=== PATIENT | male | born 1955 | race Caucasian/White ===

== ENCOUNTER 2020-10-15 14:44 | Outpatient (CLI) | payer OTHER, SELFPAY | END 2020-10-15 14:45 | disposition home or self-care (01) | LOC: ANHCOVIDVC 14:44 | PROVIDERS: PCP Family Medicine | DX: Z23 Encounter for immunization (principal) | CPT/HCPCS: 0001A; 91300 ==

== ENCOUNTER 2020-11-05 14:46 | Outpatient (CLI) | payer OTHER, SELFPAY | END 2020-11-05 14:47 | disposition home or self-care (01) | LOC: ANHCOVIDVC 14:46 | PROVIDERS: PCP Family Medicine | DX: Z23 Encounter for immunization (principal) | CPT/HCPCS: 0002A; 91300 ==

== ENCOUNTER 2021-10-13 07:33 | Outpatient (CLI) | payer OTHER, SELFPAY ==
--- NOTE | 2021-10-19 15:05 | WPDHOMESLEEP ---
Sleep Study - Home Unattended Date of Study: 10/13/21 Ordering Provider: Qasim Méndez MD Interpreting Provider: Hannah Johnson, DO Home Sleep Study Type: Watch PAT Height: 1.78 m Weight: 97.522 kg Body Mass Index: 30.8 Neck Circumference (inches): 17.5 [place]: 2 Reason for Sleep Study Unrefreshing sleep, daytime hypersomnia Sleep History The patient is a 66-year-old male with hypertension, hyperlipidemia, GERD, chronic kidney disease stage III and vitamin-D deficiency that had a home sleep test ordered by his primary care for evaluation of sleep apnea. The patient is a building maintenance simple HEENT. The patient denies awakening from sleep short of breath. He rarely awakens at night with heartburn, belching or cough. He frequently snores and is constantly loudly enough that others complain. He occasionally has trouble sleeping when he has a cold. He denies waking up gasping for air throughout the night. He denies having breathing problems at night observed by others. He denies sweating excessively at night. He denies having heart palpitations or irregular heartbeats during the night. He denies falling asleep during the day and while driving. He denies sleep paralysis and cataplexy. He occasionally experiences vivid dreamlike scenes upon awakening or falling asleep. He denies having nightmares. He frequently has thoughts racing through his mind. He denies feeling sad or depressed. He occasionally has anxiety. He denies noticing parts of his body jerk. He denies kicking during the night. He denies having crawling and aching feelings in his legs as well as leg pain during the night. He denies grinding his teeth during sleep awakening with morning jaw pain. He is occasionally bothered by pain during the day but never awakened by pain during the night. He occasionally wakes up feeling stiff in morning with sore or achy muscles. He occasionally wakes up with pain in the neck, spine or other joints. He goes to bed between 8 and 9:00 p.m. on weekdays and between 9 and 10:00 p.m. on the weekends. It takes him 10 minutes to fall asleep. He wakes up 2-3 times throughout the night to urinate. He can fall back asleep within 2-3 minutes. He wakes up between 4 5:00 a.m. on the weekdays and between 7 and 8:00 a.m. on the weekends. He typically gets 6-7 hours of sleep per night. He will not stay in bed after waking up in the morning. He currently lives with his and 18-year-old daughter. He does not consume any caffeinated beverages within 2 hours of bedtime. He does not engage in physical exercise before bedtime. He will watch television before falling asleep. He does not take naps in the afternoon or the evening. He will drink 2 L of caffeinated tea per day. He will occasionally drink alcohol. He quit smoking cigarettes 34 years ago. He denies recreational drug use. [facility] Past Medical History Medical History CKD (chronic kidney disease) stage 3, GFR 30-59 ml/min Dyslipidemia Essential (primary) hypertension GERD (gastroesophageal reflux disease) GERD without esophagitis Vitamin D deficiency Surgical History Surgical History History of hernia repair (~2009) right inguinal hernia repair around 2009 [place] teeth extracted (~1975) Family History Family History Mother Hypertension Patient's mother is in good health Family history of diabetes mellitus in first degree relative Diabetes mellitus Father Patient's father is in good health Malignant neoplasm of prostate Diabetes mellitus Family history of chronic obstructive pulmonary disease Sibling Patient's sister is in good health Patient's brother is in good health Grandparent Malignant neoplasm of prostate Social History Social History (Reviewed 10/19/21 @ 16:09 by Tabitha
[2021-10-19 15:47] VITALS: BMI 30.8
== END 2021-10-19 10:36 | disposition home or self-care (01) ==
LOC: ANHCSM 07:33
PROVIDERS: PCP Family Medicine; Visit Provider Family Medicine
DX: G47.9 Sleep disorder, unspecified (principal); G47.10 Hypersomnia, unspecified
CPT/HCPCS: 95800

== ENCOUNTER → 2022-07-12 07:53 | Outpatient (CLI) | payer OTHER, SELFPAY ==
--- NOTE | ~2022-07-12 | US_ITS ---
EXAMINATION: US aorta [facility] DATE: 07/12/2022 15:14 TANK FILLER INDICATION: Screening for abdominal aortic aneurysm. Hypertension. High cholesterol. TECHNIQUE: Grayscale, color Doppler, and pulsed Doppler images of the aorta and common iliac arteries were obtained. COMPARISON: None. FINDINGS: The proximal aorta measures 2.6 cm greatest axial sagittal dimension. The mid aorta measures 1.7 cm g reatest sagittal dimension. The distal aorta measures 1.4 cm greatest sagittal dimension. The right c ommon internal iliac artery measures 1.3 cm. The left common iliac artery measures 1.3 cm. IMPRESSION: 1. Normal caliber aorta without aneurysm. Reviewed, dictated and finalized at location A. FILLER
== END ==
PROVIDERS: PCP Family Medicine; Visit Provider Family Medicine
DX: Z13.6 Encounter for screening for cardiovascular disorders (principal); Z87.891 Personal history of nicotine dependence
CPT/HCPCS: 76706

== ENCOUNTER 2022-08-10 09:34 | Outpatient (CLI) | payer OTHER, SELFPAY ==
[2022-08-10 22:16] LABS: Potassium 4.1 mmol/L (3.4-5.0)
[2022-08-10 22:21] LABS: Alanine Aminotransferase 28 U/L (6-50); Albumin Level 4.7 g/dL (3.5-5.1); Alkaline Phosphatase 95 U/L (38-126); Anion Gap 9 mmol/L (8-16); Aspartate Amino Transferase 34 U/L (17-59); Bilirubin,Total 0.6 mg/dL (0.2-1.3); Blood Urea Nitrogen 17 mg/dL (9-20); Carbon Dioxide 23 mmol/L (22-30); Chloride 103 mmol/L (98-107); Estimated Glomerular Filt Rate > 60; Glucose 83 mg/dL (65-110); Sodium 135 mmol/L (137-145)
== END 2022-08-10 09:35 | disposition home or self-care (01) ==
LOC: ANHGOSHLAB 09:35
PROVIDERS: PCP Family Medicine; Visit Provider Family Medicine
DX: I10 Essential (primary) hypertension (principal); N18.30 Chronic kidney disease, stage 3 unspecified
CPT/HCPCS: 36415; 80053

== ENCOUNTER 2023-03-18 01:48 | Day surgery (SDC) | payer OTHER, SELFPAY ==
[2023-03-14 10:22] VITALS: BMI 31.6
[2023-03-18] MEDS: LACTATED RINGERS 1,000 ML 150 ML IV CONT (11:11)
--- NOTE | 2023-03-18 11:34 | PM.HPGS ---
History of Present Illness History of Present Illness Consent: Risks, benefits, and alternatives have been discussed and questions answered. Patient agrees to proceed with procedure. Chief complaint: hx colon polyps, neoplasm screening Narrative: Eric Tam is a 68 year old male Presents for screening colonoscopy. Patient's current weight appetite and bowel movements normal. Patient denies abdominal pain. He has had no bleeding. He does have a prior history of a tubular adenoma removed from the colon. Patient presents today for neoplasia screening. Review of Systems Review of Systems: Review of systems noncontributory. [facility], [facility] Past Medical History Medical History CKD (chronic kidney disease) stage 3, GFR 30-59 ml/min Dyslipidemia Essential (primary) hypertension GERD (gastroesophageal reflux disease) GERD without esophagitis Vitamin D deficiency Surgical History Surgical History History of hernia repair (~2009) right inguinal hernia repair around 2009 [place] teeth extracted (~1975) Family History Family History Mother Hypertension Patient's mother is in good health Family history of diabetes mellitus in first degree relative Diabetes mellitus Father Patient's father is in good health Malignant neoplasm of prostate Diabetes mellitus Family history of chronic obstructive pulmonary disease Sibling Patient's sister is in good health Patient's brother is in good health Grandparent Malignant neoplasm of prostate Social History Social History Social History: Caffeine-tea Years smoked: 15 Smoking status: Former smoker Second hand tobacco smoke exposure: No Smoking end date: 08/08/87 Alcohol intake: current Alcohol use details: consumes 5 beers occasionally Substance use: never Substance use type: does not use Lack of Transportation: No Lack of Food: Never True Current Housing: I Have Housing Concerned About Future Housing: No Difficulty Paying Gas/Electric Bills: No Difficulty Paying for Meds: No Currently Unemployed: No Education: High School Diploma/GED Difficulty w/ Childcare or Family Care: No Gender identity (if verbalized by the patient): Male Spiritual care concerns: No Meds Home Medications and Allergies Home Medications Medication Instructions Recorded Confirmed Type cholecalciferol (vitamin D3) 25 25 mcg PO DAILY 07/23/20 03/14/23 History mcg (1,000 unit) capsule multivitamin,[id number] 1 tablet PO DAILY 07/23/20 03/14/23 History (Complete Multivitamin tablet) lisinopril 10 mg tablet 10 mg PO DAILY #90 tabs 09/28/22 03/14/23 Rx pravastatin 40 mg tablet 40 mg PO QHS #90 tabs 09/29/22 03/14/23 Rx omeprazole 20 mg capsule,delayed 20 mg PO DAILY #90 caps 12/22/22 03/14/23 Rx release Allergies Allergy/AdvReac Type Severity Reaction Status Date / Time No Known Allergies Allergy Verified 03/18/23 11:06 Exam Narrative: Physical exam reveals patient to be alert. Vital signs stable. HEENT exam is unremarkable. Patient is anicteric. Lungs are clear to auscultation and percussion. Heart is without murmur or extra sounds. Abdomen bowel sounds are present soft nontender with no hepatosplenomegaly. Digital external rectal exam normal. Assessment and Plan Assessment and plan (1) History of colon polyps: Code(s): Z86.010 - Personal history of colonic polyps Status: Acute Assessment and Plan: Patient presents today for colonoscopy. He has a history of tubular adenoma in the past. Screening colonoscopy will be performed. Further recommendations will be given after endoscopy.
--- NOTE | 2023-03-18 12:50 | SUR.OPER ---
Dr. Negrete made aware that we did not retrieve ascending colon polyp. No new orders received.
[2023-03-18 12:53] VITALS: BP 104/66; PULSE 67; RESP 26; O2SAT 95
[2023-03-18 13:03] VITALS: BP 124/78; PULSE 72; RESP 20; O2SAT 95
[2023-03-18 13:13] VITALS: BP 122/80; PULSE 74; RESP 20; O2SAT 96
== END 2023-03-18 13:22 | disposition home or self-care (01) ==
PROVIDERS: PCP Family Medicine; Visit Provider Internal Medicine Gastroenterology
PROC: 0DJD8ZZ Inspection of Lower Intestinal Tract, Via Natural or Artificial Opening Endoscopic (ICD-10-PCS; CPT 45378; principal; 2023-03-18 12:30)
DX: Z12.11 Encounter for screening for malignant neoplasm of colon (principal); D12.5 Benign neoplasm of sigmoid colon; K63.5 Polyp of colon; K64.8 Other hemorrhoids; I12.9 Hypertensive chronic kidney disease with stage 1 through stage 4 chronic kidney disease, or unspecified chronic kidney disease; N18.30 Chronic kidney disease, stage 3 unspecified; E78.5 Hyperlipidemia, unspecified; K21.9 Gastro-esophageal reflux disease without esophagitis; E55.9 Vitamin D deficiency, unspecified; Z87.891 Personal history of nicotine dependence
CPT/HCPCS: 45385; 88305; J2704; J7120

== ENCOUNTER 2023-05-12 16:00 | Emergency (ER) | payer OTHER, SELFPAY ==
[2023-05-12 16:09] VITALS: BP 128/83; PULSE 79; RESP 16; TEMP 36.7; O2SAT 98
--- NOTE | 2023-05-12 16:13 | ED.EYEPROB ---
HPI - Eye Problem General Chief complaint: Eye Problems Stated complaint: Right Eye Irritation History of Present Illness HPI Narrative: pt is a 68 y/o male, presents to with right eye irritation and the sensation he has a FB after rubbing his eye Tuesday. He denies feeling anything enter his eye, but rather, felt the eye was itchy and after rubbing his eye, felt it was more irritated. he began using OTC eye drops to irrigate the eye and feels it is improved some but remains red and irritated, prompting his visit. He denies vision changes and he has no other complaints. His last tetanus was 2 years ago. Related Data Home Medications Medication Instructions Recorded Confirmed cholecalciferol (vitamin D3) 25 25 mcg PO DAILY 07/23/20 05/12/23 mcg (1,000 unit) capsule multivitamin,[id number] 1 tablet PO DAILY 07/23/20 05/12/23 (Complete Multivitamin tablet) Allergies Allergy/AdvReac Type Severity Reaction Status Date / Time No Known Allergies Allergy Verified 05/12/23 16:10 Review of Systems Eyes: Eyes: Reports as per HPI and Reports no additional eye complaints [facility] Past Medical History Medical History CKD (chronic kidney disease) stage 3, GFR 30-59 ml/min Dyslipidemia Essential (primary) hypertension GERD (gastroesophageal reflux disease) GERD without esophagitis Vitamin D deficiency Surgical History Surgical History History of hernia repair (~2009) right inguinal hernia repair around 2009 [place] teeth extracted (~1975) Family History Family History Mother Hypertension Patient's mother is in good health Family history of diabetes mellitus in first degree relative Diabetes mellitus Father Patient's father is in good health Malignant neoplasm of prostate Diabetes mellitus Family history of chronic obstructive pulmonary disease Sibling Patient's sister is in good health Patient's brother is in good health Grandparent Malignant neoplasm of prostate Social History Social History Social History: Caffeine-tea Years smoked: 15 Smoking status: Former smoker Second hand tobacco smoke exposure: No Smoking end date: 08/08/87 Alcohol intake: current Alcohol use details: consumes 5 beers occasionally Substance use: never Substance use type: does not use Lack of Transportation: No Lack of Food: Never True Current Housing: I Have Housing Concerned About Future Housing: No Difficulty Paying Gas/Electric Bills: No Difficulty Paying for Meds: No Currently Unemployed: No Education: High School Diploma/GED Difficulty w/ Childcare or Family Care: No Gender identity (if verbalized by the patient): Male Spiritual care concerns: No Exam Const: General: healthy appearing and no acute distress Nutritional Appearance: well nourished Orientation/consciousness: patient oriented x3 Limitations: no limitations HENMT: Head: normal to inspection Ears: external ears normal Face/Nose/Sinus: Normal external nose present Face and sinus: normal facial exam Mouth: Yes Normal oral and palatal mucosa present Eyes: Conjunctivae: conjunctival abnormality right conjunctival injection Direct Ophthalmoscopy: no photophobia Other: pt has fluorescein uptake at 5 o'clock on the cornea, linear without ulceration or FB. Visual acuity intact. No chemosis noted. No hyphema Neck: Neck: normal visual inspection, no lymphadenopathy and no meningeal signs Resp: Effort & Inspection: normal respiratory effort Auscultation: clear to auscultation bilaterally Cardio: Rate: regular rate Rhythm: regular rhythm Skin: General skin exam: normal color Rashes: no rashes Neuro: General: patient oriented x3, moves all extremities, no meningeal signs, no foc
== END 2023-05-12 16:33 | disposition home or self-care (01) ==
PROVIDERS: Emergency Provider Nurse Practitioner Family; PCP Family Medicine
DX: S05.01XA Injury of conjunctiva and corneal abrasion without foreign body, right eye, initial encounter (principal); N18.30 Chronic kidney disease, stage 3 unspecified; E78.5 Hyperlipidemia, unspecified; K21.9 Gastro-esophageal reflux disease without esophagitis; E55.9 Vitamin D deficiency, unspecified; Z87.891 Personal history of nicotine dependence
CPT/HCPCS: 99213; A9270; G0463

== ENCOUNTER 2024-10-26 10:09 | Outpatient (CLI) | payer MEDICARE, OTHER, SELFPAY ==
--- OUTSIDE RECORDS SUMMARY | 2024-10-26 11:17 | XMS_ITS | Clinical Summary ---
Author Organization [facility] Address [address] [place] [address] Care Team Providers Care Heel Slicker Name Role Phone Pedro Jackson MD Primary Care Provider + Source Comments [facility],non-owned Affiliates and Associated Physician Practices is amultiple site organization consisting of ambulatory clinics and hospital sitesin [place], [place], [place] and [place]. This disclosure is being madepursuant to the Care Everywhere program and may not contain all information available regarding this patient. Last updated 18.[facility] Allergies No known active allergies Medications Be aware that medications may not be up to date on this document. Always verify current medications with the patient. No known medications Active Problems No known active problems Social History Tobacco Use Types Packs/Day Years Used Date Smoking Tobacco: Never Assessed Sex and Gender Information Value Date Recorded Sex Assigned at Not on file Gender Identity Not on file Sexual Orientation Not on file Plan of Treatment Health Maintenance Due Date Last Done Comments COLOGUARD (AGES 45-75) - COL ON CA SCREENING 1956 COLON MONITORING 1956 COLONOSCOPY - COLON CA SCREENING 1956 CT COLONOGRAPHY - COLON CA SCREENING 1956 Colorectal Cancer Screening 1956 FIT - COLON CA SCREENING 1956 FLEX SIG - COLON CA SCREENING 1956 LIPID TESTING 1956 HEPATITIS C SCREENING 01/30/1974 DTAP/TDAP/TD VACCINES (1 - Tdap) 02/03/1975 PNEUMOCOCCAL VACCINE 50+ (1 of 1 - PCV) 02/03/2006 ZOSTER VACCINE (1 of 2) 02/03/2006 COVID-19 VACCINE (1 - 2023-2 5 season) 2024 INFLUENZA VACCINE (#1) 2024 DEPRESSION SCREENING 08/08/2024 Respiratory Syncytial Virus (RSV) Vaccine Pt: or over 60 yrs (1 - 1-dose 75+ series) 02/03/2031 HEPATITIS B VACCINE Aged Out No longe r eligible based on patient's age to complete this topic HIB VACCINE Aged Out No longer eligi ble based on patient's age to complete this topic HPV VACCINE Aged Out No longer eligi ble based on patient's age to complete this topic MENINGOCOCCAL (Group B) VACC INE SHARED DECISION-MAKING Aged Out No longer eligibl e based on patient's age to complete this topic MENINGOCOCCAL GROUPS A/C/Y/W VACCINE Aged Out No longer eligible b ased on patient's age to complete this topic Care Teams Heel Slicker Relationship Specialty Start Date End Date Pedro Jackson MD [address] [place] [address] PCP - General 03/06/18
[2024-10-26 13:57] LABS: Alanine Aminotransferase 40 U/L (6-50); Albumin Level 4.6 g/dL (3.5-5.1); Alkaline Phosphatase 90 U/L (38-126); Anion Gap 11 mmol/L (4-12); Aspartate Amino Transferase 35 U/L (17-59); Bilirubin,Total 0.5 mg/dL (0.2-1.3); Blood Urea Nitrogen 19 mg/dL (9-20); Calcium 9.4 mg/dL (8.4-10.2); Carbon Dioxide 24 mmol/L (22-30); Chloride 105 mmol/L (98-107); Estimated Glomerular Filt Rate 56; Glucose 87 mg/dL (65-110); Potassium 4.3 mmol/L (3.4-5.0); Sodium 140 mmol/L (137-145)
== END 2024-10-26 10:10 | disposition home or self-care (01) ==
LOC: ANHGOSHLAB 10:10
PROVIDERS: PCP Family Medicine; Visit Provider Family Medicine
DX: E78.5 Hyperlipidemia, unspecified (principal); I10 Essential (primary) hypertension
CPT/HCPCS: 36415; 80053

== ENCOUNTER 2025-05-09 11:04 | Outpatient (CLI) | payer MEDICARE, OTHER, SELFPAY ==
--- OUTSIDE RECORDS SUMMARY | 2025-05-09 11:34 | XMS_ITS | Clinical Summary ---
Author Organization [facility] Address [address] [place] [address] Care Team Providers Care Skimmer Reverberatory Name Role Phone Pedro Jackson MD Primary Care Provider + Source Comments [facility],non-owned Affiliates and Associated Physician Practices is amultiple site organization consisting of ambulatory clinics and hospital sitesin [place], [place], [place] and [place]. This disclosure is being madepursuant to the Care Everywhere program and may not contain all information available regarding this patient. Last updated 18.[facility] Allergies No known active allergies Medications * Be aware that medications may not be up to date on this document. Alwaysverify current medications with the patient. No known medications Active Problems No known active problems Social History Tobacco Use Types Packs/Day Years Used Date Smoking Tobacco: Never Assessed Sex and Gender Information Value Date Recorded Sex Assigned at Not on file Legal Sex Male 8:55 AM CDT Gender Identity Not on file Sexual Orientation [...] 02/03/2006 ZOSTER VACCINE (1 of 2) 02/03/2006 DEPRESSION SCREENING 08/08/2024 COVID-19 VACCINE (2023-2 5 season) 2025 INFLUENZA VACCINE (#1) 2025 Respiratory Syncytial Virus (RSV) Vaccine Pt: or [...] on patient's age to complete this topic Insurance [employer] Care Teams Skimmer Reverberatory Relationship Specialty Start Date End Date Pedro Jackson MD [phone] [address] PCP - General 03/06/18
[2025-05-09 13:02] LABS: Hematocrit 44.3 % (42.0-52.0); Hemoglobin 15.0 g/dL (14.0-18.0); Immature Granulocyte Percent A 0.3 % (0-0.5); Lymphocytes Absolute Auto 2.43 K/mm3 (0.9-3.2); Mean Corpuscular HGB Conc 33.9 g/dl (32-36); Mean Corpuscular Hemoglobin 32.4 pg (26-34); Mean Corpuscular Volume 95.7 fl (80-100); Nucleated Red Blood Cells Absolute Auto 0.000 K/mm3 (0.0-0.012); Nucleated Red Blood Cells Perc 0.0 % (0.0-0.2); Platelet Count Result 243 k/mm3 (150-375); Red Blood Count 4.63 M/mm3 (4.6-6.20); White Blood Count 8.9 K/mm3 (4.5-10.0)
[2025-05-09 13:12] LABS: Alanine Aminotransferase 33 U/L (6-50); Albumin Level 4.5 g/dL (3.5-5.1); Alkaline Phosphatase 91 U/L (38-126); Anion Gap 10 mmol/L (4-12); Aspartate Amino Transferase 46 U/L (17-59); Bilirubin,Total 0.7 mg/dL (0.2-1.3); Blood Urea Nitrogen 18 mg/dL (9-20); Calcium 9.1 mg/dL (8.4-10.2); Carbon Dioxide 23 mmol/L (22-30); Chloride 105 mmol/L (98-107); Cholesterol 200 mg/dL (0-200); Estimated Glomerular Filt Rate > 60; Glucose 89 mg/dL (65-110); HDL Direct 39 mg/dL; Potassium 4.2 mmol/L (3.4-5.0); Sodium 138 mmol/L (137-145); Total Protein 8.3 g/dL (6.3-8.2); Triglycerides 218 mg/dL (<150)
[2025-05-09 13:49] LABS: Prostate Specific Antigen 2.9 ng/mL (< OR = 4.0)
[2025-05-09 13:53] LABS: Thyroid Stimulating Hormone Reflex 1.070 uIU/mL (0.465-4.68)
[2025-05-09 16:20] LABS: Hemoglobin A1C 5.4 % (<5.7)
== END 2025-05-09 11:05 | disposition home or self-care (01) ==
LOC: ANHGOSHLAB 11:04
PROVIDERS: PCP Family Medicine; Visit Provider Family Medicine
DX: E55.9 Vitamin D deficiency, unspecified (principal); Z12.5 Encounter for screening for malignant neoplasm of prostate; I10 Essential (primary) hypertension; E78.5 Hyperlipidemia, unspecified; R73.9 Hyperglycemia, unspecified
CPT/HCPCS: 36415; 80053; 80061; 82306; 83036; 84153; 84443; 85025; G0103